=== PATIENT | male | born 1935 | race Caucasian/White ===

== ENCOUNTER 2018-02-03 21:28 | Emergency (ER) | payer MEDICARE ==
[~2018-02-03] VITALS: Ht 182.9 cm; Wt 76.0 kg
[2018-02-04 00:30] VITALS: BP 141/91
== END 2018-02-04 00:32 | disposition home or self-care (01) ==
LOC: ER 21:28
DX: J45.909 Unspecified asthma, uncomplicated (principal); F17.200 Nicotine dependence, unspecified, uncomplicated
CPT/HCPCS: 99283